=== PATIENT | female | born 1980 | race Caucasian/White ===

== ENCOUNTER 2022-12-25 04:50 | Emergency (ER) | payer OTHER ==
[~2022-12-25] VITALS: Ht 152.4 cm; Wt 58.1 kg
[2022-12-25 04:54] VITALS: BP 123/69
--- NOTE | 2022-12-25 05:00 | NUR ---
Note guilhermelia in EDM - 12/25/22 at 0558 by [email or web address] 42 Y/O F presents with pressure pelvic/abdominal pain 8/10x1hr. pt stated this has never happened beforeand took advil with little relief. pt stated she is currently on her menstrual cycle. pt is A&Ox4, skin intact, respirations even and unlabored. PMH-pt denies NKA
--- NOTE | 2022-12-25 05:32 | NUR ---
pt ambulatory to bed #5
--- NOTE | 2022-12-25 05:45 | NUR ---
42 Y/O F presents with pressure pelvic/abdominal pain 8/10x1hr. pt stated this has never happened beforeand took advil with little relief. pt stated she is currently on her menstrual cycle. pt is A&Ox4, skin intact, respirations even and unlabored. PMH-pt denies NKA
--- NOTE | 2022-12-25 07:29 | NUR ---
Report and continuation of care received from FRANCES Wilson.
[2022-12-25 08:13] LABS: APPEARANCE,URINE CLEAR (CLEAR); BILIRUBIN,URINE NEGATIVE (NEGATIVE); BLOOD, URINE 3+ (NEGATIVE); COLOR,URINE YELLOW (YELLOW); LEUKOCYTE ESTERASE ,URINE NEGATIVE (NEGATIVE); NITRITE, URINE POSITIVE (NEGATIVE); UGLUCOSE 3+ (NEGATIVE)
[2022-12-25 08:42] LABS: BASOPHILS # (AUTO) 0.1 K/uL (0.00-0.22); BASOPHILS % (AUTO) 1.3 % (0.0-2.0); EOSINOPHILS # (AUTO) 0.1 K/uL (0-0.4); EOSINOPHILS % (AUTO) 2.7 % (0.0-4.0); LYMPHOCYTES # (AUTO) 1.5 K/uL (2.5-16.5); LYMPHOCYTES % (AUTO) 36.6 % (20.5-51.1); MEAN CORPUSCULAR HEMOGLOBIN 15 pg (27-31); MEAN CORPUSCULAR HGB CONC 29 g/dL (33-37); MEAN CORPUSCULAR VOLUME 51.7 fL (80-94); MONOCYTES # (AUTO) 0.3 K/uL (0.8-1.0); MONOCYTES % (AUTO) 7.3 % (1.7-9.3); NEUTROPHILS # (AUTO) 2.2 K/uL (1.8-7.7); NEUTROPHILS % (AUTO) 52.1 % (42.2-75.2); PLATELET COUNT (AUTO) 291 K/uL (140-450); RED BLOOD CELL COUNT(AUTO) 4.27 MIL/uL (4.20-5.40); RED CELL DISTRIBUTION WIDTH 20.6 % (11.6-13.7); WHITE BLOOD COUNT (AUTO) 4.2 K/uL (4.8-10.8)
[2022-12-25 08:56] LABS: RBC,URINE 80-100 /HPF (0-5); WBC,URINE 16-25 (MOD) /HPF (0-5)
[2022-12-25 08:59] LABS: HEMOGLOBIN 6.3 g/dL (12.0-16.0)
[2022-12-25 09:02] LABS: ALBUMIN 3.6 g/dL (3.4-5.0); ANION GAP 10.5 (8-16); CARBON DIOXIDE 27.3 mmol/L (21-32); CREATININE 0.5 mg/dL (0.6-1.3); POTASSIUM 3.8 mmol/L (3.5-5.1); TOTAL BILIRUBIN 0.2 mg/dL (0.0-1.0)
[2022-12-25 09:08] VITALS: BP 136/65
--- NOTE | 2022-12-25 09:08 | NUR ---
Dr. Caputo reevaluating patient at bedside
--- NOTE | 2022-12-25 09:15 | NUR ---
Refusal to permit blood transfusion form signed by patient.
[2022-12-25] MEDS ORDERED: FERR325E14 PO (09:17)
[2022-12-25] MEDS ORDERED: CEPH-588 PO (09:18)
--- NOTE | 2022-12-25 09:36 | NUR ---
Patient discharged with v/s stable. Written and verbal after care instructions given and explained for Severe Anemia, UTI. Patient alert, oriented and verbalized understanding of instructions. Ambulatory with steady gait. All questions addressed prior to discharge. ID band removed. Patient advised to follow up with PMD. Rx of Keflex, Ferrous Sulfate given. Patient educated on indication of medication including possible reaction and side effects. Opportunity to ask questions provided and answered. Copies of UA, CBC/CMP handed to patient per request.
--- NOTE | 2022-12-31 14:51 | NUR ---
Stephanie samson in ED - 12/31/22 at 1856 by [email or web address] LATE ENTRY. RECEIVED POSITIVE URINE CULTURE. FORM GIVEN TO DR CHAMBERLAIN, TREATMENT APPROPRIATE. FORM PLACED IN BINDER.
--- NOTE | 2022-12-31 14:51 | NUR ---
LATE ENTRY. RECEIVED POSITIVE URINE CULTURE. FORM GIVEN TO DR SONG, TREATMENT APPROPRIATE. FORM PLACED IN BINDER.
== END 2022-12-25 09:36 | disposition home or self-care (01) ==
LOC: MED 04:50
DX: D64.9 Anemia, unspecified (principal); N39.0 Urinary tract infection, site not specified; Z98.890 Other specified postprocedural states; Z79.899 Other long term (current) drug therapy; Z79.2 Long term (current) use of antibiotics
CPT/HCPCS: 36415; 80053; 81001; 81025; 83690; 85025; 87086; 99283